=== PATIENT | male | born 1965 | race Caucasian/White ===

== ENCOUNTER 2019-05-31 08:47 | Emergency (ER) | payer SELFPAY ==
[~2019-05-31] VITALS: Ht 177.8 cm; Wt 97.3 kg
[~2019-05-31 08:47] MED LIST: LOTREL 5/10 MG1 CAP PO; ZOLOFT50 MG PO
[2019-05-31 09:02] VITALS: Ht 177.8 cm; Wt 97.3 kg
[2019-05-31] MEDS ORDERED: KEFLEX500 MG PO (10:42)
[2019-05-31] MEDS ORDERED: MEDROL DOSE PACK4 MG PO (10:42)
[2019-05-31 12:48] VITALS: BP 154/97
== END 2019-05-31 12:21 | disposition home or self-care (01) ==
LOC: D.ER 08:47
DX: J02.9 Acute pharyngitis, unspecified (principal); K11.7 Disturbances of salivary secretion; I10 Essential (primary) hypertension; Z72.0 Tobacco use